=== PATIENT | female | born 1995 | race African-American/Black ===

== ENCOUNTER 2017-08-28 14:43 | Emergency (ER) | payer MEDICAID, OTHER ==
[~2017-08-28] VITALS: Ht 157.5 cm; Wt 59.0 kg
[2017-08-28 14:46] VITALS: BP 133/76; PULSE 76; RESP 13; TEMP 98.8; O2SAT 97
--- NOTE | 2017-08-28 15:26 | PD ---
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 Patient states she has had some vaginal bleeding and clots last evening. She states she's used 5 pads in the last 24 hours. She had no period last month. She states she is sexually active but only using condoms for control. Patient also complains of mild cold symptoms but these are minor compared to the abdominal discomfort. It as a cramping which comes and goes, as well as intermittent nausea and one vomiting episode within the last 24 hours. Pain is 6 out of 10. Patient did try 2 [id number] ibuprofen with mild relief earlier today. She has no known drug allergies. PFSH Past Medical History ?: Not LMP: 08/27/17 Social History Alcohol Use: No Tobacco Use: No Allergies-Medications (Allergen,Severity, Reaction): Coded Allergies: No Known Allergies (Verified Allergy, Unknown, 08/28/17) Review of Systems Except as stated in HPI: all other systems reviewed are Neg General / Constitutional: No: Fever Eyes: No: Visual changes HENT: No: Headaches Cardiovascular: No: Chest Pain or Discomfort Respiratory: No: Shortness of Breath Gastrointestinal: Positive: Nausea, Vomiting, Abdominal Pain (see history of present illness) Genitourinary: Positive: Pelvic Pain, Vaginal Bleeding, No: Dysuria Musculoskeletal: No: Pain Skin: No Rash Neurologic: No: Weakness Psychiatric: No: Depression Endocrine: No: Polydipsia Hematologic/Lymphatic: No: Easy Bruising Physical Exam Narrative GENERAL: Patient appears in no obvious distress. SKIN: Warm and dry. Normal color. Normal turgor HEAD: Atraumatic. Normocephalic. EYES: Pupils equal and round. No scleral icterus. No injection or drainage. ENT: No nasal bleeding or discharge. Mucous membranes pink and moist. Pharynx is clear. Airway is patent. NECK: Trachea midline. Supple and nontender CARDIOVASCULAR: Regular rate and rhythm. RESPIRATORY: No accessory muscle use. Clear to auscultation. Breath sounds equal bilaterally. GASTROINTESTINAL: Abdomen soft, mild generalized suprapubic, nondistended. Hepatic and splenic margins not palpable. No CVA tenderness. MUSCULOSKELETAL: Extremities without clubbing, cyanosis, or edema. No obvious deformities. NEUROLOGICAL: Awake and alert. No obvious cranial nerve deficits. Motor grossly within normal limits. Five out of 5 muscle strength in the arms and legs. Normal speech. PSYCHIATRIC: Appropriate mood and affect; insight and judgment normal. Data Data Last Documented VS Vital Signs Date Time Temp Pulse Resp B/P (MAP) Pulse Ox O2 Delivery O2 Flow Rate FiO2 08/28/17 14:46 98.8 76 13 133/76 (95) 97 Orders Orders Beta Hcg (Quant/Titer) (08/28/17 15:21) Complete Blood Count With Diff (08/28/17 15:21) Basic Metabolic Panel (Bmp) (08/28/17 15:21) Complete Rh (08/28/17 15:21) Urinalysis - C+S If Indicated (08/28/17 15:21) Ed Urine Pregnancytest Poc (08/28/17 15:21) Ondansetron Odt (Zofran Odt) (08/28/17 15:30) Us Pelvis (Ques Pr/Ect)W Trans (08/28/17 17:04) Labs Laboratory Tests Test 08/28/17 15:30 White Blood Count 7.9 TH/MM3 Red Blood Count 4.07 MIL/MM3 Hemoglobin 12.9 GM/DL Hematocrit 37.5 % Mean Corpuscular Volume 92.4 FL Mean Corpuscular Hemoglobin 31.7 PG Mean Corpuscular Hemoglobin Concent 34.3 % Red Cell Distribution Width 12.7 % Platelet Count 298 TH/MM3 Mean Platelet Volume 7.9 FL Neutrophils (%) (Auto) 64.8 % Lymphocytes (%) (Auto) 18.9 % Monocytes (%) (Auto) 14.2 % Eosinophils (%) (Auto) 1.7 % Basophils (%) (Auto) 0.4 % Neutrophils # (Auto) 5.1 TH/MM3 Lymphocytes # (Auto) 1.5 TH/MM3 Monocytes # (Auto) 1.1 TH/MM3 Eosinophils # (Auto) 0.1 TH/MM3 Basophils # (Auto) 0.0 TH/MM3 CBC Comment DIFF FINAL Differential Comment Urine Color LIGHT-YELLOW Urine Turbidity CLEAR Urine pH 7.0 Urine Specific [place] 1.009 Urine Protein NEG mg/dL Urine Glucose (UA) NEG mg/dL Urine Ketones NEG mg/dL Urine Occult Blood MOD Urine Nitrite NEG Urine Bilirubin NEG Urine Urobilinogen LESS THAN 2.0 MG/DL Urine Leukocyte Esterase NEG Urine RBC 1 /hpf Urine WBC LESS THAN 1 /hpf Urine Squamous Epithelial Cells 1 /hpf Urine Bacteria RARE /hpf Microscopic Urinalysis Comment CULT NOT INDICATED Blood Urea Nitrogen 11 MG/DL Creatinine 0.69 MG/DL Random Glucose 82 MG/DL Calcium Level 9.4 MG/DL Sodium Level 138 MEQ/L Potassium Level 3.8 MEQ/L Chloride Level 106 MEQ/L Carbon Dioxide Level 24.1 MEQ/L Anion Gap 8 MEQ/L Estimat Glomerular Filtration Rate 131 ML/MIN Human Chorionic Gonadotropin, Quant 991 MIU/ML MDM Medical Decision Making Medical Screen Exam Complete: Yes Emergency Medical Condition: Yes Differential Diagnosis Menstrual cramping. . Threatened . UTI. Narrative Course Urine test is positive. Labs ordered including CBC, BMP, serum hCG, and type and screen. Urinalysis is sent to the lab. Patient is given Zofran 4 mg by mouth. CBC is unremarkable. Patient's blood tests is O+. Chemistries are unremarkable. HCG quantitative is 991. Urinalysis shows moderate occult blood otherwise no signs of infection. Patient discussed with Dr. Stafford who recommends ultrasound to rule out ectopic . Ultrasound shows no products of conception. Only thickened endometrium. Patient is felt to be stable for discharge home. Patient is to follow-up in 2 days for repeat hCG or sooner if symptoms worsen as needed. Diagnosis Primary Impression: Threatened miscarriage in early Referrals: [facility] Patient Instructions: General Instructions, Miscarriage (ED) Additional Instructions: Current hCG is 991. Patient is to follow-up in 2 days for recheck of hCG. Patient to return sooner with worsening pain and/or bleeding. Med/Other Pt SpecificInfo: Prescription(s) given Disposition: DISCHARGE HOME Condition: Stable Mateo Lim Aug 28, 2017 15:26
[2017-08-28] MEDS ORDERED: ONDANSETRON ODT 4 MG TAB PO ONE (15:30)
[2017-08-28 16:03] LABS: AUTOMATED NEUTROPHIL # 5.1 TH/MM3 (1.8-7.7); BASOPHIL % 0.4 % (0.0-2.0); EOSINOPHIL # 0.1 TH/MM3 (0-0.4); EOSINOPHIL % 1.7 % (0.0-4.0); HEMATOCRIT 37.5 % (35.0-46.0); HEMOGLOBIN 12.9 GM/DL (11.6-15.3); LYMPH % 18.9 % (9.0-44.0); LYMPHOCYTE # 1.5 TH/MM3 (1.0-4.8); MEAN CELL VOLUME 92.4 FL (80.0-100.0); MEAN CORPUSCULAR HEMOGLOBIN 31.7 PG (27.0-34.0); MEAN CORPUSCULAR HGB CONC 34.3 % (32.0-36.0); MEAN PLATELET VOLUME 7.9 FL (7.0-11.0); MONO % 14.2 % (0.0-8.0); MONOCYTE # 1.1 TH/MM3 (0-0.9); NEUT % 64.8 % (16.0-70.0); PLATELET COUNT 298 TH/MM3 (150-450); RED BLOOD COUNT 4.07 MIL/MM3 (4.00-5.30); RED CELL DISTRIBUTION WIDTH 12.7 % (11.6-17.2); WHITE BLOOD COUNT 7.9 TH/MM3 (4.0-11.0)
[2017-08-28 16:41] LABS: BICARBONATE 24.1 MEQ/L (21.0-32.0); CALCIUM 9.4 MG/DL (8.5-10.1); CREATININE 0.69 MG/DL (0.50-1.00)
[2017-08-28 17:09] LABS: BACTERIA, URINE RARE /hpf; BILIRUBIN, URINE NEG (NEG); BLOOD, URINE MOD (NEG); GLUCOSE,URINE NEG (NEG); KETONE, URINE NEG (NEG); NITRITE,URINE NEG (NEG); SQUAMOUS EPITHELIAL CELL URINE 1 /hpf (0-5); URINE COLOR LIGHT-YELLOW (YELLW/STRAW); URINE LEUKOCYTE ESTERASE NEG (NEG)
--- NOTE | 2017-08-28 18:30 | RADRPT ---
EXAM DATE/TIME: 08/28/2017 17:43 [facility] COMPARISON: No previous studies available for comparison. INDICATIONS : Bleeding. LAB(S): Beta-hC MEDICAL HISTORY : None. SURGICAL HISTORY : None. ENCOUNTER: Initial ACUITY: 2 days PAIN SCORE: 2/10 LOCATION: Bilateral pelvis MEASUREMENTS: UTERUS: 8.2 x 5.6 x 4.1 cm ENDOMETRIAL STRIPE: 15 mm RIGHT OVARY: 3.1 x 2.3 x 2.3 cm LEFT OVARY: 3.1 x 1.7 x 1.4 cm FREE FLUID: No FINDINGS: There is no free fluid, or adnexal mass. No definite uterine mass is identified for technique. There are prominent blood vessels adjacent to the uterus bilaterally of uncertain clinical significance. T here is an approximate 2.4 cm echogenic area in the right ovary possibly a complex cyst or a teratoma . This should be followed. There is no free fluid. There is no evidence for intrauterine . CONCLUSION: There is no evidence for intrauterine and has an echogenic area in the righ t ovary which does not have the appearance of ectopic , however this possibility is not excl uded could potentially be a complicated cyst or a teratoma. Clinical correlation is recommended in ad dition to repeat pelvic ultrasound in 3 months. Lory Chawla MD on August 28, 2017 at 18:25 Board Certified Radiologist. This report was verified electronically.
== END 2017-08-28 18:50 | disposition home or self-care (01) ==
LOC: NEPD 14:43
DX: O20.0 Threatened abortion (principal); Z3A.00 Weeks of gestation of pregnancy not specified
CPT/HCPCS: 76700; 76817; 80048; 81001; 84702; 84703; 85025; 86901; 99284

== ENCOUNTER 2017-08-30 18:45 | Emergency (ER) | payer MEDICAID ==
[~2017-08-30] VITALS: Ht 157.5 cm; Wt 60.0 kg
[2017-08-30 18:46] VITALS: BP 127/78; PULSE 80; RESP 16; TEMP 99.2; O2SAT 100
--- NOTE | 2017-08-30 19:23 | PD ---
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 Patient was seen in the emergency room 2 days ago for pelvic pain and vaginal bleeding. Beta-hCG was positive. Patient was advised to follow local physician for repeat beta hCG in 2 days. Patient does not have a local physician and came back to the ED. Patient states that she has increasing pelvic pain and increasing vaginal bleeding with passing blood and blood clots. Patient denies any headache. Patient denies any chest pain or shortness of breath. Patient denies nausea vomiting diarrhea. Patient denies any fever chills. Patient's blood type O+. [facility] Past Medical History Medical History: Denies Significant Hx ?: Not LMP: 08/29/17 Past Surgical History Surgical History: No Previous Surgery Social History Alcohol Use: No Tobacco Use: No Substance Use: No Allergies-Medications (Allergen,Severity, Reaction): Coded Allergies: No Known Allergies (Verified Allergy, Unknown, 08/30/17) Reported Meds & Prescriptions Reported Meds & Active Scripts Active No Active Prescriptions or Reported Medications Review of Systems General / Constitutional: No: Fever Eyes: No: Visual changes HENT: No: Headaches Cardiovascular: No: Chest Pain or Discomfort Respiratory: No: Shortness of Breath Gastrointestinal: No: Abdominal Pain Genitourinary: Positive: Pelvic Pain, Vaginal Bleeding, No: Dysuria Musculoskeletal: No: Pain Skin: No Rash Neurologic: No: Weakness Psychiatric: No: Depression Endocrine: No: Polydipsia Hematologic/Lymphatic: No: Easy Bruising Physical Exam Narrative GENERAL: Well-nourished, well-developed patient. SKIN: Focused skin assessment warm/dry. HEAD: Normocephalic. EYES: No scleral icterus. No injection or drainage. NECK: Supple, trachea midline. No JVD or lymphadenopathy. CARDIOVASCULAR: Regular rate and rhythm without murmurs, gallops, or rubs. RESPIRATORY: Breath sounds equal bilaterally. No accessory muscle use. GASTROINTESTINAL: Abdomen soft, non-tender, nondistended. MUSCULOSKELETAL: No cyanosis, or edema. BACK: Nontender without obvious deformity. No CVA tenderness. 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 The cervix is closed. Uterus is nonenlarged mild to moderate tenderness on palpation. No adnexal masses or tenderness. Data Data Last Documented VS Vital Signs Date Time Temp Pulse Resp B/P (MAP) Pulse Ox O2 Delivery O2 Flow Rate FiO2 08/30/17 18:46 99.2 80 16 127/78 (94) 100 Room Air Orders Orders Complete Blood Count With Diff (08/30/17 19:16) Beta Hcg (Quant/Titer) (08/30/17 19:16) Labs Laboratory Tests Test 08/30/17 19:22 White Blood Count 5.8 TH/MM3 Red Blood Count 4.22 MIL/MM3 Hemoglobin 13.3 GM/DL Hematocrit 38.7 % Mean Corpuscular Volume 91.6 FL Mean Corpuscular Hemoglobin 31.6 PG Mean Corpuscular Hemoglobin Concent 34.5 % Red Cell Distribution Width 12.5 % Platelet Count 274 TH/MM3 Mean Platelet Volume 7.7 FL Neutrophils (%) (Auto) 59.1 % Lymphocytes (%) (Auto) 25.1 % Monocytes (%) (Auto) 13.1 % Eosinophils (%) (Auto) 2.1 % Basophils (%) (Auto) 0.6 % Neutrophils # (Auto) 3.5 TH/MM3 Lymphocytes # (Auto) 1.5 TH/MM3 Monocytes # (Auto) 0.8 TH/MM3 Eosinophils # (Auto) 0.1 TH/MM3 Basophils # (Auto) 0.0 TH/MM3 CBC Comment DIFF FINAL Differential Comment Human Chorionic Gonadotropin, Quant 173 MIU/ML MDM Medical Decision Making Medical Screen Exam Complete: Yes Emergency Medical Condition: Yes Interpretation(s) 9:08 PM. CBC within normal limit. Beta-hCG 173. Differential Diagnosis Differential diagnosis including threaten AB, incomplete AB, completed AB, ectopic . Narrative Course 22-year-old female with pelvic pain and vaginal bleeding. Diagnosis Primary Impression: Complete Patient Instructions: General Instructions Additional Instructions: Tylenol Advil for pain. Follow-up with local java tech lead. Return if increased pelvic pain, vaginal bleeding. Med/Other Pt SpecificInfo: No Meds Exist/No RX given Scripts No Active Prescriptions or Reported Meds Disposition: DISCHARGE HOME Condition: Stable Dakota Coronado MD Aug 30, 2017 19:23
[2017-08-30 20:21] LABS: AUTOMATED NEUTROPHIL # 3.5 TH/MM3 (1.8-7.7); BASOPHIL % 0.6 % (0.0-2.0); EOSINOPHIL # 0.1 TH/MM3 (0-0.4); EOSINOPHIL % 2.1 % (0.0-4.0); HEMATOCRIT 38.7 % (35.0-46.0); HEMOGLOBIN 13.3 GM/DL (11.6-15.3); LYMPH % 25.1 % (9.0-44.0); LYMPHOCYTE # 1.5 TH/MM3 (1.0-4.8); MEAN CELL VOLUME 91.6 FL (80.0-100.0); MEAN CORPUSCULAR HEMOGLOBIN 31.6 PG (27.0-34.0); MEAN CORPUSCULAR HGB CONC 34.5 % (32.0-36.0); MEAN PLATELET VOLUME 7.7 FL (7.0-11.0); MONO % 13.1 % (0.0-8.0); MONOCYTE # 0.8 TH/MM3 (0-0.9); NEUT % 59.1 % (16.0-70.0); PLATELET COUNT 274 TH/MM3 (150-450); RED BLOOD COUNT 4.22 MIL/MM3 (4.00-5.30); RED CELL DISTRIBUTION WIDTH 12.5 % (11.6-17.2); WHITE BLOOD COUNT 5.8 TH/MM3 (4.0-11.0)
== END 2017-08-30 22:05 | disposition home or self-care (01) ==
LOC: NEPC 18:45
DX: O03.9 Complete or unspecified spontaneous abortion without complication (principal)
CPT/HCPCS: 84702; 85025; 99283